=== PATIENT | female | born 2000 | race Caucasian/White ===

== ENCOUNTER 2025-08-03 16:30 | Emergency (ER) | payer MEDICAID, SELFPAY ==
[2025-08-03 16:38] VITALS: BP 142/83; PULSE 92; RESP 18; TEMP 36.9; O2SAT 99; BMI 46.0
--- NOTE | 2025-08-03 16:44 | PD.EDRME ---
Rapid Medical Screening Exam [facility] Arrival date/time: 08/03/25 16:30 Chief Complaint: Abdominal Pain Vital signs: Vital Signs Temperature 98.4 F 08/03/25 16:38 Pulse Rate 92 08/03/25 16:38 Respiratory Rate 18 08/03/25 16:38 Blood Pressure 142/83 H 08/03/25 16:38 Pulse Oximetry (%) 99 08/03/25 16:38 Oxygen Delivery Method Room Air 08/03/25 16:38 [facility] Narrative: 24 year old female who is 7 weeks 3 days gestational age, LMP 06/19/2025, presents today for cramping abdominal pain beginning several days ago. No vaginal bleeding. Exam: Exam remarkable for equivocal pelvic tenderness. Clinical Impression: Pelvic tenderness in 7 3/7-week woman.
--- NOTE | 2025-08-03 16:51 | XR_ITS ---
Examination: Complete OB ultrasound, less than 14 weeks, transabdominal Date and time of exam: August 03, 2025, 1651 hours INDICATIONS: Onset pelvic cramping today Technique: Obstetrical ultrasound images less than 14 weeks performed via transabdominal imaging Findings: Uterus 9.7 cm intrauterine gestational sac 0.9 cm corresponds to 5 weeks 5 days gestational age No pole, no cardiac activity Right ovary 3.5 cm arterial flow Left ovary 3.8 cm arterial flow IMPRESSION: Empty intrauterine gestational sac corresponding to 5 weeks 5 days gestational age Recommend transvaginal pelvic sonography follow-up to confirm viability
[2025-08-03 17:05] LABS: Collection Type, Urine Clean Catch
[2025-08-03 17:24] LABS: Basophils # (Auto) 0.0 Thou/mm3 (0.0-0.2); Basophils % (Auto) 0 % (0-2.5); Eosinophils # (Auto) 0.2 Thou/mm3 (0.0-0.5); Eosinophils % (Auto) 1 % (0-10); Hematocrit 39.5 % (36.0-46.0); Hemoglobin 12.9 g/dL (12.0-16.0); Immature Granulocytes Auto 0.13 Thou/mm3 (0.00-0.00); Lymphocytes # (Auto) 2.8 Thou/mm3 (1.0-4.8); Lymphocytes % (Auto) 20 % (10-50); Mean Corpuscular HGB Conc 32.7 g/dl (31.0-37.0); Mean Corpuscular Hemoglobin 28.0 pg (25.0-35.0); Mean Corpuscular Volume 86 fL (80-100); Monocytes # (Auto) 0.8 Thou/mm3 (0.0-0.8); Monocytes % (Auto) 6 % (0-12); Neutrophils # (Auto) 10.0 Thou/mm3 (1.8-7.7); Neutrophils % (Auto) 72 % (37-80); Nucleated Red Blood Cell # 0.00 Thou/mm3 (0.00-0.00); Nucleated Red Blood Cell % 0 /100 WBC (0); Platelet Count 273 Thou/mm3 (140-440); RDW Standard Deviation 43.1 fL (36.4-46.3); Red Blood Count 4.61 Miln/mm3 (4.00-5.20); White Blood Count 13.9 Thou/mm3 (3.6-11.0)
[2025-08-03 17:39] LABS: Bacteria,Urine Rare; Bilirubin,Urine Negative (Negative); Blood,Urine 2+ (Negative); Clarity,Urine Clear (Clear/Hazy); Color,Urine Lt-Yellow (Lt Yel-Yel); Culture Indicated,Urine Not Indicated; Glucose, Urine Negative (Negative); Ketones,Urine Negative (Negative); Leukocyte Esterase,Urine Positive (Negative); Nitrite,Urine Negative (Negative); PH,Urine 6.0 (5.0-7.0); Protein,Urine Trace (Neg - Trace); RBC,Urine 7 /hpf (0-3); Specific Gravity,Urine 1.019 (1.001-1.035); Squamous Epithelial Cell,Urine 5 /hpf (0-5); Urobilinogen,Urine Negative mg/dL (0.0-1.0); WBC,Urine 3 /hpf (0-5)
[2025-08-03 17:46] LABS: Alanine Aminotransferase 27 U/L (10-49); Albumin, Serum 4.8 gm/dL (3.5-5.0); Albumin/Globulin Ratio 2.4 (1.2-2.2); Alkaline Phosphatase 43 U/L (46-116); Anion Gap 11 (7-16); Aspartate Amino Transferase 23 U/L (0-34); BUN/Creatinine Ratio 9 Ratio (12-20); Bilirubin,Direct 0.1 mg/dL (0.0-0.3); Bilirubin,Total 0.4 mg/dL (0.3-1.2); Blood Urea Nitrogen 7 mg/dL (9-23); Calcium 9.3 mg/dL (8.3-10.6); Calcium (Corrected) 9.3 mg/dL (8.5-10.1); Carbon Dioxide 24.4 mMol/L (20.0-31.0); Chloride 106 mMol/L (98-107); Creatinine (Component) 0.8 mg/dL (0.6-1.3); Estimated Creatinine Clearance 162.1 mL/min (>60); Globulin 2.0 gm/dL (2.3-3.5); Glucose 96 mg/dL (74-106); Magnesium 1.7 mg/dL (1.6-2.6); Osmolality,Calculated 279 (275-295); Potassium 3.8 mMol/L (3.4-5.1); Sodium 141 mMol/L (136-145); Thyroid Stimulating Hormone 1.41 uIU/mL (0.55-4.78); Total Protein 6.8 gm/dL (5.7-8.2); eGFR > 60 See Note
[2025-08-03 18:15] LABS: Beta HCG,Quantitative 10926 mIU/mL (<5.0)
--- NOTE | 2025-08-03 19:35 | PD.EDABDPN ---
ED Abdominal Pain RME/HPI General Chief Complaint: Abdominal Pain Stated complaint: ABD CRAMPING. 7 WKS PREG Time seen by provider: 08/03/25 19:34 Arrival date/time: 08/03/25 16:30 RME / HPI RME / HPI narrative: 24 year old female who is 7 weeks 3 days gestational age, LMP 06/19/2025, presents today for cramping abdominal pain beginning several days ago. No vaginal bleeding. Dr. Perera?s Main ED Evaluation: 24yo female who is ~7.5 weeks gestation presents to the ED for a chief complaint of pelvic cramping for the last few days. Patient denies any N/V, fever, chils, vaginal bleeding, or any other associated symptoms. Denies any history of similar symptoms. Related Data Home Medications ?Medication ?Instructions ?Recorded ?Confirmed albuterol sulfate 90 mcg/actuation 1 puff inhalation PRN PRN 07/31/23 07/31/23 aerosol inhaler shortness of breath Allergies Allergy/AdvReac Type Severity Reaction Status Date / Time Penicillins Allergy Severe Anaphylaxis Verified 08/03/25 16:30 Review of Systems Review of Systems Systems Reviewed: All systems reviewed, normal except as documented Past Medical History Past Medical History NEUROLOGIC: Negative Neurological Disorders or Seizures CARDIAC: Negative Cardiac Disorders or Congestive Heart Failure RESPIRATORY: Positive Asthma (dx at 3yrs old); Negative Chronic Obstructive Pulmonary Disease (COPD), Bronchitis, Emphysema, Pneumonia, Pulmonary Fibrosis, Cystic Fibrosis, Tuberculosis, Pulmonary Embolism, Pulmonary Edema or Sleep Apnea GASTROINTESTINAL: Negative Gastrointestinal Disorders or Hepatitis GENITOURINARY: Negative Genitourinary Disorders or Renal Disease REPRODUCTIVE: Negative Endometriosis, Genital Herpes, Gonorrhea, Pelvic Inflammatory Disease, Previous Pregnancies, Syphilis or Uterine Prolapse MUSCULOSKELETAL: Negative Musculoskeletal Disorders ENDOCRINE: Negative Endocrine Disorders, Diabetes Mellitus Type 1 or Diabetes Mellitus Type 2 HEMATOLOGIC: Negative Blood Disorders OTHER HISTORY: Negative Autoimmune Disease, Blood Transfusions, Blood Transfusion Reaction, Anesthesia Reactions, Organ Transplant, Chemotherapy, Radiation Therapy, Hyperbaric Therapy, MRSA, VRSA, Vancomycin-Resistant Enterococci, Human Immunodeficiency Virus (HIV), Chicken Pox, Measles, Mumps, Rubella ([place]ian Measles), Pertussis, Clostridium Difficile or Cancer Family History FAMILY HISTORY: Positive Family Cancer (grandfather, colon); Negative Family Psychiatric Problems, Family Respiratory Disorders, Family Cardiac Disorders, Family Gastrointestinal Problems, Family Surgery or Family Anesthesia Reaction Surgical History SURGICAL: Negative Section or Organ Transplant Social History SMOKING STATUS: Never smoker ED Exam Narrative Physical exam: Generally patient is alert in no obvious distress, heart regular rate and rhythm, lungs clear to auscultation equal bilaterally, abdomen is soft obese and nontender. External pelvic exam showed mild suprapubic abdominal tenderness. Course Quality Measures none Orders Category Date Time Status US OB <= 14 weeks fetus Stat Exams 08/03/25 16:51 Completed Beta HCG,Quantitative Stat Lab 08/03/25 17:17 Completed Bilirubin,Direct Stat Lab 08/03/25 17:17 Completed CBC Stat Lab 08/03/25 17:17 Completed CMP [Comprehensive Metabolic Panel] Stat Lab 08/03/25 17:17 Completed Magnesium Stat Lab 08/03/25 17:17 Completed Rh Testing Only Stat Lab 08/03/25 17:17 Completed TSH [Thyroid Stimulating Hormone] Stat Lab 08/03/25 17:17 Completed UA, C/S IF [Urinalysis, C/S if Indicated] Stat Lab 08/03/25 17:00 Completed Vital Signs Vital signs: Vital Signs Temperature 98.4 F 08/03/25 16:38 Pulse Rate 92 08/03/25 16:38 Respiratory Rate 18 08/03/25 16:38 Blood Pressure 142/83 H 08/03/25 16:38 Pulse Oximetry (%) 99 08/03/25 16:38 Oxygen Delivery Method Room Air 08/03/25 16:38 Abdominal Pain MDM MDM Narrative MDM Narrative:: Scribe Attestation: 08/03/25 - Celia Valles am scribing for and in the presence of Dr. Perera. Patient is not vaginally bleeding. Ultrasound showed a gestational sac without a developing fetus of 5 weeks and 5 days. The patient should be approximately 7-1/2 weeks . My fear is that the patient has an anembryonic /blighted ovum. This was conveyed to the patient. It was conveyed to the patient that she will most likely develop vaginal bleeding and pass clots. She may take Tylenol and/or ibuprofen for pain. There is no evidence for urinary tract infection. I interpreted all labs. Patient data External records reviewed:: [facility] previous records (Per chart review, patient was seen here on 2/5/24 for otitis externa.) Clinical information provided by:: patient Social determinants that could affect healthcare access:: none Patient has the following chronic illnesses:: none How is presenting disease/condition affected by chronic disease/condition?: no chronic disease Evaluation data The following diagnostics were reviewed and interpreted by me:: lab results and radiology exam(s) Lab and/or radiology exams considered but not ordered:: none Interpretation Summary: [facility] Report Signed Patient: SHAUN WAN. Record#: [id number] Birthdate: 2000 Age/Sex: 24 / F Location: [facility] Attending Dr: Ordering Physician: Jonas Grier MD Date of Service: 08/03/25 Procedure(s): US OB <= 14 weeks fetus Accession Number(s): [id number] cc: Jonas Grier MD; Spike Altamirano MD~ Examination: Complete OB ultrasound, less than 14 weeks, transabdominal Date and time of exam: August 03, 2025, 1651 hours INDICATIONS: Onset pelvic cramping today Technique: Obstetrical ultrasound images less than 14 weeks performed via transabdominal imaging Findings: Uterus 9.7 cm intrauterine gestational sac 0.9 cm corresponds to 5 weeks 5 days gestational age No pole, no cardiac activity Right ovary 3.5 cm arterial flow Left ovary 3.8 cm arterial flow IMPRESSION: Empty intrauterine gestational sac corresponding to 5 weeks 5 days gestational age Recommend transvaginal pelvic sonography follow-up to confirm viability Dictated By: Spike Altamirano MD Signed By: <Electronically signed by Spike Altamirano MD in OV> 08/03/25 1719 Medications / Prescriptions Medications or Prescriptions considered but not ordered:: none Medication administrations:: none Consultations Consultation(s) initiated? (list below): No Diagnosis Differential diagnosis abdominal pain: other (See MDM) Most likely diagnosis given after review of the tests above:: see clinical impression below Admission Indicated Admission indicated?: not indicated Admission Request Was there a request for admission?: No Disposition Plan Disposition Plan: Discharge Discharge Attestation Discharge Attestation: The patient and all family members were given an opportunity to ask questions and understood the discharge instructions. Discharge instructions specifically effects, indications for sooner follow up or return to the emergency department, and the expected course of current diagnosis. Patient condition: Stable Discharge Plan Plan Patient Disposition: HOME (Self Care) Prescriptions/Referrals Prescriptions/Med Rec: No Action albuterol sulfate 90 mcg/actuation HFA aerosol inhaler 1 puff INHALATION PRN PRN (Reason: shortness of breath) Patient Comments: INHALE 2 PUFFS BY MOUTH EVERY 4 HOURS NEEDED Referrals: Du Giles MD [Primary Care Provider, Family Practice] - In 1 week Problem List Clinical Impression: Anembryonic Patient/Caregiver Discharge Instructions Education Materials: Understanding Blighted Ovum Additional Instructions: You most likely will start to vaginal bleed within the next 1 week. You may take Tylenol and/or ibuprofen for pain. You will pass clots. Follow-up with your [facility] physician as needed. Return to ER as needed or if condition worsens. Print Language: [place] Stand Alone Forms: Vicky Award Info., Patient Portal Info Letter
--- NOTE | 2025-08-03 20:02 | PC.NURSE ---
NA for DC papers
== END 2025-08-03 20:06 | disposition home or self-care (01) ==
PROVIDERS: Emergency Medicine; Emergency Provider Emergency Medicine; PCP Family Medicine
DX: O02.0 Blighted ovum and nonhydatidiform mole (principal); Z3A.01 Less than 8 weeks gestation of pregnancy
CPT/HCPCS: 36415; 76801; 80053; 81001; 82248; 83735; 84443; 84702; 85025; 86901; 99283